=== PATIENT | male | born 1950 ===

== ENCOUNTER 2025-01-02 08:57 | Outpatient (CLI) | payer MEDICARE, SELFPAY ==
--- OUTSIDE RECORDS SUMMARY | 2025-01-02 09:09 | XMS_ITS | Referral Summary ---
Author Organization [facility] [place] [facility] Address [address] [place] [address] Care Team Providers Care Eeler Name Role Phone JoshuamilesOj Stinson DO Primary Care Prov ider Allergies No known active allergies Medications amiodarone (PACERONE) 100 mg tablet Take 1 tablet (100 mg total) by mouth daily 2 Active atorvastatin (LIPITOR) 20 mg tablet Take 1 tablet (20 mg total) by mouth nightly 3 Active calcium citrate (CALCITRATE) 950 mg (200 mg of elemental calcium) tablet Take 2 tablets by mouth 2 (two) times a day Active carvediloL (COREG) 6.25 mg tablet Take 1 tablet (6.25 mg total) by mouth 2 (two) times a day 3 Active Farxiga 10 mg tablet Take 1 tablet (10 mg total) by mouth every morning 3 Active fluticasone propionate (FLONASE) 50 mcg/actuation nasal spray Administer 2 sprays into affected nostril(s) daily 1 Active furosemide (LASIX) 40 mg tablet Take 40 mg by mouth 2 (two) times a day 2 Active Entresto 49-51 mg tablet Take 1 tablet by mouth 2 (two) times a day 3 Active Januvia 100 mg tablet Take 1 tablet (100 mg total) by mouth daily 3 Active tadalafiL (CIALIS) 5 mg tablet Take 1 tablet (5 mg total) by mouth daily 3 Active tamsulosin (FLOMAX) 0.4 mg extended release capsule Take by mouth daily 3 Active testosterone 50 mg/5 gram (1 %) PLEASE SEE ATTACHED FOR DETAILED DIRECTIONS 2 Active apixaban (Eliquis) 5 mg tablet Take 1 tablet (5 mg total) by mouth 2 (two) times a day 4 Active diclofenac sodium (Voltaren Arthritis Pain) 1 % gel APPLY 2 GRAMS TWICE A DAY TO AFFECTED AREA - APPLY TOPICALLY 4 Active predniSONE (DELTASONE) 20 mg tablet TAKE 2 TABLETS BY MOUTH EVERY DAY FOR 5 DAYS 4 Active cyanocobalamin (Vitamin B-12) 1,000 mcg/mL injection Inject 1 mL (1,000 mcg total) into the muscle as instructed every 2 (two) weeks 3 Active multivit minerals-folic acid-lutein (THERAPEUTIC-M) 0.4-250 mg-mcg tablet Take 1 tablet by mouth daily Active Active Problems Problem Noted Date Diagnosed Date Benign hypertensive heart di sease with congestive cardiac failure 02/19/2024 Generalized osteoarthritis 02/19/2024 Paroxysmal atrial fibrillation 02/19/2024 Presence of heart assist device 02/19/2024 Splenic infarction 06/25/2023 Cardiac defibrillator in situ 05/31/2022 Chronic congestive heart failure 05/31/2022 Decreased testosterone level 05/31/2022 Increased frequency of urination 05/31/2022 Stricture of esophagus 05/31/2022 Vitamin B12 deficiency (non anemic) 05/31/2022 Primary hypertension 02/07/2022 Stage 3b chronic kidney disease (CKD) 02/07/2022 Moderate mitral regurgitation 10/15/2021 Moderate pulmonary hypertension 10/15/2021 Overview (02/19/2024): Noted on cardiac catheterization 08/10/18 Nonischemic cardiomyopathy 09/06/2021 Overview (02/19/2024): RENETTA ALEX CUSTOMER EXPERIENCE CONSULTANT-D IMPLANTED 04/18/2016 FOR NICM Presence of biventricular au tomatic cardioverter/defibrillator (AICD) 09/06/2021 Overview (02/19/2024): T ABI CUSTOMER EXPERIENCE CONSULTANT-D IMPLANTED 04/18/2016 FOR NICM Heart failure 07/01/2021 BPH with urinary obstruction 05/25/2021 BPH with urinary obstruction 05/25/2021 Mixed hyperlipidemia 05/25/2021 Obstructive sleep apnea syndrome 05/25/2021 Type 2 diabetes mellitus wit h stage 3b chronic kidney disease, without long-term current use of insulin 05/25/2021 Immunizations Immunization Administration Dates Next Due Influenza, Quadrivalent, Hig h Dose, Preservative Free, Intrr 03/15/2023,05/04/2022,05/04/2021,2020 Influenza, Unspecified 05/04/2021 Pfizer SARS-CoV-2 Monovalent Vaccination (12+ Yrs) PURPLE 03/25/2021 Pneumococcal Conjugate Pcv20 03/26/2022 Sars-cov-2 Covid-19 Mrna, Bi valent, Original/chayo Ba.1 04/22/2023 Social History Tobacco Use Types Packs/Day Years Used Date Smoking Tobacco: Former Cigarettes Q uit: 12/08/1981 Cigars Smokeless Tobacco: Never Tobacco Cessation:Counseling Given: Not Answered AUDIT-C Answer Date Recorded Q1: How often do you have a drink containing alc ohol? 2-3 times a week 07/29/2022 Average Number of Drinks Not on file 023 Frequency of Binge Drinking Not on file 08/2022 Sex and Gender Information Value Date Recorded Sex Assigned at Not on file Legal Sex Male 2:18 AM WEB PRESS JOGGER Gender Identity Not on file Sexual Orientation Not on file Last Filed Vital Signs Vital Sign Reading Time Taken Comments Blood Pressure 102/68 07/29/2022 9:15 AM WEB PRESS JOGGER Pulse 66 07/29/2022 9:15 AM WEB PRESS JOGGER Temperature - - Respiratory Rate - - Oxygen Saturation - - Inhaled Oxygen Concentration - - Weight 106 kg (233 lb 11 oz) 02/21/2024 10:21 AM CDT Height 180.3 cm (5' 11) 02/21/2024 10:21 AM CDT Body Mass Index 32.59 02/21/2024 10:21 AM CDT Plan of Treatment Not on file Insurance MEDICARE [facility] MEDICARE [facility] MEDICARE [facility] Address: [address] [address] [place] [address] [place] [address] Care Teams Eeler Relationship Specialty Start Date End Date Oj Lopez DO PCP - General Family Medicine 12/14/21
--- OUTSIDE RECORDS SUMMARY | 2025-01-02 09:09 | XMS_ITS | Clinical Summary ---
Author Organization [facility] [place] [facility] Address [address] [place] [address] Care Team Providers Care Nonprofit Financial Controller Name Role Phone JoshuamilesOj Stinson DO Primary [...] Nonischemic cardiomyopathy 09/06/2021 Overview (02/19/2024): RENETTA ALEX COUNSELING SPECIALIST-D IMPLANTED 04/18/2016 FOR NICM Presence of biventricular au tomatic cardioverter/defibrillator (AICD) 09/06/2021 Overview (02/19/2024): RENETTA ALEX COUNSELING SPECIALIST-D IMPLANTED 04/18/2016 FOR NICM Heart failure 07/01/2021 [...] Pcv20 03/26/2022 Sars-cov-2 Covid-19 Mrna, Bi valent, Original/omicron Ba.1 04/22/2023 Surgical History Surgery Date Site/Laterality Comments GASTRIC BYPASS COLONOSCOPY ESOPHAGEAL DILATION CARDIAC DEFIBRILLATOR PLACEMENT CARDIAC PACEMAKER PLACEMENT BARIATRIC SURGERY Medical History Medical History Date Comments Heart failure (HCC) Diabetes mellitus (HCC) Hypertension Obesity Sickle cell anemia (HCC) Family History Medical History Relation Name Comments Arthritis Brother Justin correar Diabetes Brother Justin louis Diabetes Daughter kaitlynn siddiqi Kidney disease Father sherri Martinez Arthritis Mother robert guerra Cancer Mother robert guerra Diabetes Mother robert guerra Lung cancer Mother robert guerra Diabetes Sister delgado louis Hypertension Sister delgado louis Seizures Sister delgado louis Relation Name Status Comments Brother Justin missy Daughter kaitlynn deckerlace Father sherri Martinez Mother robert guerra Sister delgado louis Social History Tobacco Use Types Packs/Day Years [...] on file Legal Sex Male 2:18 AM GEAR TESTER Gender Identity Not on file Sexual Orientation Not on file Obstetrics History Last Filed Vital Signs Vital Sign Reading Time Taken Comments Blood Pressure 102/68 07/29/2022 9:15 AM GEAR TESTER Pulse 66 07/29/2022 9:15 AM GEAR TESTER Temperature - - Respiratory Rate - - Oxygen Saturation - - Inhaled Oxygen Concentration - - Weight 106 kg (233 lb 11 oz) 02/21/2024 10:21 AM CDT Height 180.3 cm (5' 11) 02/21/2024 10:21 AM CDT Body Mass Index 32.59 02/21/2024 10:21 AM CDT Plan of Treatment Health Maintenance Due Date Last Done Comments Albumin Creatinine Ratio, Urine 1949 Colon Cancer Screening-Colonoscopy 1949 Depression Screening 1949 Fall Risk Assessment 1949 Hemoglobin A1C 1949 Hepatitis C Screening 1949 Prostate Cancer Screening-PSA 1949 eGFR 1949 Dilated Eye Exam 1949 Foot Exam 1949 DTaP/Tdap/Td Vaccine (1 - Tdap) 1960 Hepatitis B Screening 08/25/1967 Zoster Vaccine (1 of 2) 08/25/1999 Well Visit 65+ 2014 Covid-19 Vaccine (5 - 2023-2 5 season) 2024 04/22/2023, 11/10/2021, 03/25/2021, Additional history exists Lipid Panel 12/24/2024 12/25/2023, 06/30/2022 Influenza Vaccine (Season Ended) 2025 03/15/2023, 05/04/2022, 05/04/2021, Additional history exists Pneumococcal vaccine 65+ Completed 03/26/2022 Abdominal Aortic Aneurysm (A AA) Screen Completed 06/25/2023 Insurance MEDICARE [facility] MEDICARE [facility] H[facility]/PPO Address: [address] [place] [address] [place] [address] Care Teams Nonprofit Financial Controller Relationship Specialty Start Date End Date Oj Lopez DO PCP - General Family Medicine 12/14/21
--- OUTSIDE RECORDS SUMMARY | 2025-01-02 09:09 | XMS_ITS | Clinical Summary ---
Author Organization [facility] Address [address] [place] [address] Care Team Providers Care Home Aide Name Role Phone Oj Lopez DO Primary Care Provide r Allergies No known active allergies Medications Dapagliflozin Propanediol 10 MG Tab Take 1 tablet (10 mg total) by mouth daily. Active tamsulosin 0.4 MG Cap Take 1 capsule (0.4 mg total) by mouth daily. Active tadalafil 5 MG tablet Take 1 tablet (5 mg total) by mouth daily. 1 Active carvedilol 6.25 MG tablet Take 1 tablet (6.25 mg total) by mouth 2 (two) times daily. 180 tablet 1 2 Active atorvastatin (LIPITOR) 20 MG tablet TAKE 1 TABLET BY MOUTH NIGHTLY AT BEDTIME 90 tablet 2 Active multi vitamin/minerals (THERA-M ENHANCED) tablet Take 1 tablet by mouth daily. Active cyanocobalamin (B-12) 1000 MCG/ML injection Inject 1 mL (1,000 mcg total) into the muscle every 14 (fourteen) days. Takes twice a month. States he is due for it today. 3 Active furosemide (LASIX) 40 MG tablet Take 1 tablet (40 mg total) by mouth daily. 90 tablet 1 4 Active sAXagliptin HCl 5 MG Tab Take 1 tablet by mouth daily. 5 Active ELIQUIS 5 MG tablet TAKE 1 TABLET (5 MG TOTAL) BY MOUTH 2 (TWO) TIMES DAILY. INDICATIONS: BLOOD CLOT IN A DEEP VEIN 180 tablet 1 5 Active ENTRESTO 49-51 MG tabletIndications:N onischemic cardiomyopathy ([facility]) TAKE 1 TABLET BY MOUTH TWICE A DAY 180 tablet 5 Active Active Problems Problem Noted Date Diagnosed Date Generalized osteoarthritis 02/19/2024 Paroxysmal atrial fibrillation ([facility]) 02/06/2024 Splenic infarction 06/25/2023 Cardiac defibrillator in situ 05/31/2022 Chronic congestive heart failure ([facility]/ C) 05/31/2022 Decreased testosterone level 05/31/2022 Increased frequency of urination 05/31/2022 Stricture of esophagus 05/31/2022 Vitamin B12 deficiency (non anemic) 05/31/2022 Primary hypertension 02/07/2022 Type 2 diabetes mellitus wit h stage 3b chronic kidney disease, without long-term current use of insulin ([facility]) 02/07/2022 Stage 3b chronic kidney disease (CKD) 02/07/2022 Moderate mitral regurgitation 10/15/2021 Moderate pulmonary hypertension ([facility] ) 10/15/2021 Overview (10/15/2021): Noted on cardiac catheterization 08/10/18 Nonischemic cardiomyopathy ([facility]) Overview (09/06/2021): SADIE ALEX STRIPE MATCHER-D IMPLANTED 04/18/2016 FOR NICM Presence of biventricular au tomatic cardioverter/defibrillator (AICD) 09/06/2021 Overview (09/06/2021): SADIE ALEX STRIPE MATCHER-D IMPLANTED 04/18/2016 FOR NICM Heart failure ([facility]) 07/01/2021 BPH with urinary obstruction 05/25/2021 Obstructive sleep apnea syndrome 05/25/2021 Mixed hyperlipidemia Resolved Problems Problem Noted Date Diagnosed Date Resolved Date Hypertensive heart disease 0 01/03/2022 Encounters Date Type Department Care Team Description 01/01/2025 Telephone [facility], [address] [address] Krystal Olmos, JONATHON- Follow Up 12/16/2024 2:40 PM CDT Office Visit [facility] Multispecialty Care - [facility] [address] [facility], [facility] [address] [place] [address] Sherin Watkins MD CKD Follow-up 12/16/2024 Travel 12/15/2024 2:20 PM CDT Allied Health/Nurse Visit [facility], [facility] [address] [place] [address] Marylou Kumar MD Remote Device Check 12/05/2024 11:30 AM CDT [facility], [facility] [address] [place] [address] Marylou Kumar MD In Clinic Device Check 12/05/2024 Travel from Last 3 Months Immunizations Immunization Administration Dates Next Due Fluzone High Dose - >Age 65 (Prefilled Syringe) 05/04/2022,05/04/2021,04/16/2021 Influenza Adult (Generic) 05/04/2021 Family History Medical History Relation Comments Diabetes Maternal Grandfather Diabetes Maternal Grandmother Diabetes Mother Hypertension Mother Lung Cancer Mother Diabetes Paternal Grandfather Diabetes Paternal Grandmother Hypertension Sister 1 Seizures Sister 1 Relation Status Comments Brother 1 Alive Brother 2 Brother 3 Alive Brother 4 Alive Brother 5 Alive Father (Age 23) Maternal Grandfather Maternal Grandmother Mother (Age 71) Paternal Grandfather Paternal Grandmother Sister 1 Sister 2 Alive Sister 3 Alive Social History Tobacco Use Types Packs/Day Years Used Date Smoking Tobacco: Former Cigars Q uit: 1999 Smokeless Tobacco: Never Tobacco Cessation:Counseling Given: No Alcohol Use Standard Drinks/Week Comments Yes 4 (1 standard drink = 0.6 oz pur e alcohol) [facility] Utilities Answer Date Recorded In the past 12 months has e electric, gas, oil, or water company threatened to shut off services in your home? No 06/25/2023 Humiliation, Afraid, Rape, and Kick questionnair e Answer Date Recorded Within the last year, have y ou been afraid of your partner or ex-partner? No 06/25/2023 Within the last year, have y ou been humiliated or emotionally abused in other ways by your partner or ex-partner? No Within the last year, have y ou been kicked, hit, slapped, or otherwise physically hurt by your partner or ex-partner? No 06/25/2023 Within the last year, have y ou been raped or forced to have any kind of sexual activity by your partner or ex-partner? No 06/25/2023 Overall Financial Resource Strain (CARDIA) Answe r Date Recorded How hard is it for you to pa y for the very basics like food, housing, medical care, and heating? Not hard at all 06/25/2023 PHQ-2 Answer Date Recorded Patient Health Questionnaire-2 Score 0 12/16/2024 Hunger Vital Sign Answer Date Recorded Within the past 12 months, y ou worried that your food would run out before you got the money to buy more. Never true 06/25/20 Within the past 12 months, t he food you bought just didn't last and you didn't have money to get more. Never true 06/25/2023 PRAPARE - Transportation Answer Date Re corded In the past 12 months, has l ack of transportation kept you from medical appointments or from getting medications? No 05/28 In the past 12 months, has l ack of transportation kept you from meetings, work, or from getting things needed for daily living? No 06/25/2023 Housing Stability Vital Sign Answer Dominick e Recorded In the last 12 months, was t here a time when you were not able to pay the mortgage or rent on time? No 06/25/2023 In the last 12 months, how many places have you lived? 1 06/25/2023 In the last 12 months, was t here a time when you did not have a steady place to sleep or slept in a fpc (including now)? No 06/25/2023 Sex and Gender Information Value Date Recorded Sex Assigned at Male 08/05/2024 11:24 AM [employer] Legal Sex Male 6:03 PM [employer] Gender Identity Male 07/08/2021 1:41 PM [employer] Sexual Orientation Not on file Last Filed Vital Signs Vital Sign Reading Time Taken Comments Blood Pressure 108/74 12/16/2024 2:31 PM CDT Pulse 42 12/16/2024 2:31 PM CDT Temperature 36.4 C (97.5 F) 12/16/2024 2:31 PM CDT Respiratory Rate 18 03/29/2024 11:05 AM CDT Oxygen Saturation 99% 12/16/2024 2:31 PM CDT Inhaled Oxygen Concentration - - Weight 105.7 kg (233 lb) 12/16/2024 2:31 PM CDT Height 180.3 cm (5' 11) 12/16/2024 2:31 PM CDT Body Mass Index 32.5 12/16/2024 2:31 PM CDT Plan of Treatment Upcoming Encounters Date Type Department Care Team (Late st Contact Info) Description 01/28/2025 9:00 AM CDT Appointment [facility] [place] [address] Lelia Little PA-C 02/04/2025 10:15 AM CDT Office Visit [facility] [address] Matt Villalobos MD [facility], [address] [address] 03/16/2025 2:15 PM CDT Allied Health/Nurse Visit [facility], [address] [address] Geoffrey Yu MD [address] [address] 03/17/2025 2:30 PM CDT [facility], [address] [address] Geoffrey Yu MD Three [facility]. [address] [place] [address] 08/11/2025 10:30 AM [employer] Office Visit [facility] THREE [facility], [address] [place] [address] Marylou Kumar MD Three [facility]. [address] [place] [address] Health Maintenance Due Date Last Done Comments Colorectal Cancer Screening Colonoscopy (10 Years) 1950 Kidney Health Evaluation 1950 Diabetes: Retinopathy Eye Exam 08/25/1967 Hepatitis C 08/25/1967 DTaP, Tdap and Td Vaccines (1 - Tdap) 1968 Zoster Vaccines (1 of 2) 08/25/1999 Annual Medicare Wellness Visit 2014 Lipid Panel 06/30/2023 06/30/2022, 05/25/2021 Hemoglobin A1C 12/25/2023 06/26/2023, 10/2022, 12/13/2021, Additional history exists COVID-19 Vaccine (2 - season) 2024 03/25/2021 RSV Immunization or 60+ Years (1 - 1-dose 75+ series) 2024 Pneumococcal Vaccine: 50+ Years Completed 03/26/2022 AAA SCREENING Completed 06/25/2023 PHQ-2 (Physician [place]) Completed 12/16/2024 Meningococcal B Vaccine Aged Out No l onger eligible based on patient's age to complete this topic Meningococcal Vaccine Aged Out No caitlin mayelin eligible based on patient's age to complete this topic RSV Immunizations Under 20 Months Aged Out No longer eligible based on patient's age to complete this topic Goals Goal Patient Goal Type Associated Problems Recent Progress Patient-Stated? Author Patient will return to prior living situation and remain independent in ADLs upon discharge from hospital Lifestyle No Stefani Oseguera RN Medical Devices Implanted Type Area Data Deliverables Manager Device Identifier Shelf Expiration Date Model / Serial / Lot Icd-10/24/201 6 Implanted: (Quantity not on file) Explanted: by Marylou Kumar MD (Quantity not on file) ICD [employer] CARDIAC RHYTHM AND HEART FAILURE - DIV M [id number] / [id number] / Description:Implanted in [place] DASH [id number] Sadie Jqn-Psq-Alc- Implanted:Qty : 1 on 03/14/2024 by Marylou Kumar MD ICD [employer] CARDIAC RHYTHM AND HEART FAILURE - DIV M 07/09/2025 [id number] / [id number] / [id number]- 011 Implanted: (Quantity not on file) Lead Implant [employer] - DIV [employer] [id number] / [id number] / Atrial Lead- 1 Implanted: (Quantity not on file) Lead Implant [employer] - DIV [employer] [id number] / [id number] / Lv Lead-04/18/20 16 Implanted: (Quantity not on file) Lead Implant [employer] CARDIAC RHYTHM AND HEART FAILURE - DIV M [id number] / [id number] / Procedures Procedure Name Priority Date/Time Associated Diagnosis Comments HEMOGLOBIN, GLYCOSYLATED Routine 06/26/2023 3:50 [address] [employer] [place] [address] ABD+PEL W CON STAT 06/25/2023 1:42 AM [employer] [place] LIPID PANEL Routine 06/30/2022 from Last 3 Months or Most Recently Relevant to Health Maintenance Results * (ABNORMAL) HEMOGLOBIN, GLYCATED (06/26/2023 3:50 AM [employer] [place]) HGB A1C 6.4(H) <5.7 % 06/26/2023 12:13 PM [employer] [facility] Comment: ADA GUIDELINES 2010 5.7 TO 6.4% INCREASED RISK OF DIABETES > OR = 6.5% CONSISTENT WITH DIABETES ESTIMATED AVG GLUCOSE 137 mg/dL 06/26/2023 12:13 PM [employer] [place] [facility] 06/26/2023 3:50 AM [employer] Schuyler Matthew MD LABORATORY Final Resul t [facility] [address] [place] [address], [place] [phone] * CT ABD+PEL W CON (06/25/2023 1:42 AM [employer] [place]) Anatomical Region Laterality Modality Abdomen Computed Tomogra phy 06/25/2023 1:27 AM [employer] [place] Impressions 06/25/2023 1:31 AM [employer] IMPRESSION: 1. Wedge-shaped area of hypoattenuation in spleen consistent with either acute or chronic infarct. 2. Tiny amount of satellite gallstones present without associated cholecystitis. 3. Of particular versus coli. PQRS ABDOMINAL: [id number] Referred By: Interpreted By: Woo Elena, 06/25/2023 1:27 AM Narrative 06/25/2023 1:31 AM [employer] HISTORY: Left lower quadrant abdominal pain COMPARISON: None TECHNIQUE: CT abdomen and pelvis performed utilizing thin-slice axial technique following IV administration of contrast. A dose-lowering technique was used for this procedure, which may include, but is not limited to, dose-reduction technique, automated exposure control, the use of iterative reconstruction, and ALARA (As Low As Reasonably Achievable) / Image Gently techniques. FINDINGS: Tiny amount of saline likely stones in otherwise normal-appearing gallbladder. Biliary tracts within normal limits. Liver, adrenal glands, and pancreas unremarkable. Spleen demonstrates wedge-shaped area of high hypoattenuation consistent with infarct. This could be either acute or chronic. Kidneys appear unremarkable. There is enlarged prostate. Other than encroachment upon the bladder base, bladder is unremarkable. GI tract shows no obstruction. Surgical changes of Monica-en-Y gastric bypass noted. There are no segments of wall thickening throughout the GI tract. Diverticulosis coli without associated diverticulitis. No abdominal or pelvic lymphadenopathy. Major vascular structures of normal course and caliber with mild calcific plaque of the infrarenal abdominal aorta and iliac arteries. No free fluid or free air. Abdominal wall and inguinal regions unremarkable. Included lower chest shows mild right basilar dependent atelectasis. There is cardiomegaly. Visible bones show no suspicious lytic or blastic lesions. Procedure Note Woo Elena MD - 06/25/2023 HISTORY: Left lower quadrant abdominal pain COMPARISON: None TECHNIQUE: CT abdomen and pelvis performed utilizing thin-slice axialtechnique following IV administration of contrast. A dose-loweringtechnique was used for this procedure, which may include, but is notlimited to, dose-reduction technique, automated exposure control, the useof iterative reconstruction, and ALARA (As Low As Reasonably Achievable) /Image Gently techniques. FINDINGS: Tiny amount of saline likely stones in otherwise normal-appearinggallbladder. Biliary tracts within normal limits. Liver, adrenal glands,and pancreas unremarkable. Spleen demonstrates wedge-shaped area of highhypoattenuation consistent with infarct. This could be either acute orchronic. Kidneys appear unremarkable. There is enlarged prostate. Otherthan encroachment upon the bladder base, bladder is unremarkable. GI tract shows no obstruction. Surgical changes of Monica-en-Y gastricbypass noted. There are no segments of wall thickening throughout the GItract. Diverticulosis coli without associated diverticulitis. No abdominal or pelvic lymphadenopathy. Major vascular structures ofnormal course and caliber with mild calcific plaque of the infrarenalabdominal aorta and iliac arteries. No free fluid or free air. Abdominalwall and inguinal regions unremarkable. Included lower chest shows mild right basilar dependent atelectasis.There is cardiomegaly. Visible bones show no suspicious lytic or blasticlesions. IMPRESSION: 1. Wedge-shaped area of hypoattenuation in spleen consistent with eitheracute or chronic infarct. 2. Tiny amount of satellite gallstones present without associatedcholecystitis. 3. Of particular versus coli. PQRS ABDOMINAL: [id number] Referred By: Interpreted By: Woo Elena, 06/25/2023 1:27 AM us Rich SORTO CT Final Resu lt * LIPID PANEL (06/30/2022) CHOLESTEROL 148 HDL 62 TRIGLYCERIDES 99 LDL (CALCULATED) 66 06/30/2022 us Default History Genericprovider LABORATORY Final Result from Last 3 Months or Most Recently Relevant to Health Maintenance Insurance MEDICARE [employer] Advance Directives * Full Code (Latest Code Status on File) Date Activated Date Inactivated Comments 06/25/2023 4:50 AM 06/27/2023 1:43 PM Care Teams Home Aide Relationship Specialty Start Date End Date Oj Lopez DO [address] [place] [address] PCP - General FAMILY PRACTICE 06/10/21
--- OUTSIDE RECORDS SUMMARY | 2025-01-02 09:09 | XMS_ITS | Encounter Summary ---
Author Organization [facility] Address [address] [place] [address] Care Team Providers Care Overhead Crane Inspector Name Role Phone Oj Lopez DO Primary Care Provide r Encounter Details Date Type Department Care Team (Late Contact Info) Description 07/01/2022 Abstract [facility] THREE [facility], [address] [address] Briana Krause MA Social History Tobacco Use Types Packs/Day Years Used Date Smoking Tobacco: Former Cigars Q uit: 1998 Smokeless Tobacco: Never Alcohol Use Standard Drinks/Week Comments Yes 4 (1 standard drink = 0.6 oz pur e alcohol) PHQ-2 Answer Date Recorded PHQ-2 Score - If the patient scores above 3, please move on to questions 3-9 0 05/12/2022 Sex and Gender Information Value Date Recorded Sex Assigned at Male 08/05/2024 11:24 AM ADMINISTRATIVE ASSISTANT COORDINATOR Legal Sex Male 6:03 PM ADMINISTRATIVE ASSISTANT COORDINATOR Gender Identity Male 07/08/2021 1:41 PM ADMINISTRATIVE ASSISTANT COORDINATOR Sexual Orientation Not on file COVID-19 Exposure Response Date Recorded In the last 10 days, have yo u been in contact with someone who was confirmed or suspected to have Coronavirus/COVID-19? No / Unsure 06/06/2022 12:48 PM ADMINISTRATIVE ASSISTANT COORDINATOR documented as of this encounter Plan of Treatment Upcoming Encounters Date Type Department Care Team (Late Contact Info) Description 01/28/2025 9:00 AM CDT Appointment [facility] Non Invasive Cardiology [facility] [address] Lelia Little PA-C 02/04/2025 10:15 AM CDT Office Visit [facility], [address] [place] [address] Matt Villalobos MD Three [facility] [address] [place] [address] 03/16/2025 2:15 PM CDT Allied Health/Nurse Visit [facility], [address] [place] [address] Geoffrey Yu MD Three [facility]. [address] [place] [address] 03/17/2025 2:30 PM CDT Allied Health/Nurse Visit [facility], [address] [place] [address] Geoffrey Yu MD Three [facility]. [address] [place] [address] 08/11/2025 10:30 AM ADMINISTRATIVE ASSISTANT COORDINATOR Office Visit [facility], [address] [place] [address] Marylou Kumar MD Three [facility]. [facility] [address] [place], [place] [id number] documented as of this encounter Procedures Procedure Name Priority Date/Time Associated Diagnosis Comments CBC (OUTSIDE LAB) Routine 06/30/2022 COMPREHENSIVE METABOLIC PANEL Routine 06/30/2022 LIPID PANEL Routine 06/30/2022 HEMOGLOBIN, GLYCOSYLATED Routine 06/30/2022 THYROID STIM HORMONE TSH Routine 06/30/2022 documented in this encounter Results * (ABNORMAL) COMPREHENSIVE METABOLIC PANEL (06/30/2022) SODIUM S/P/B 142 POTASSIUM S/P/B 4.8 CO2 29 CHLORIDE S/P/B 108 GLUCOSE 116 mg/dL CALCIUM S/P/B 9.3 BUN 18 CREATININE S/P/B 1.60(A) 0.7 - 1.3 EGFR NON-AFR. AMER. 45 <=90 ALKALINE PHOSPHATASE S/P/B 102 ALT 21 AST 24 BILIRUBIN TOTAL S/P/B 1.2 ALBUMIN S/P/B 4.3 3.5 - 5.0 TOTAL PROTEIN S/P/B 7.8 GLOBULIN 3.5 06/30/2022 [facility] History Genericprovider LABORATORY Edited Result - Final * LIPID PANEL (06/30/2022) Pathologist [facility] [place] CHOLESTEROL 148 HDL 62 TRIGLYCERIDES 99 LDL (CALCULATED) 66 06/30/2022 Default History Genericprovider LABORATORY Final Result * HEMOGLOBIN, GLYCOSYLATED (06/30/2022) HGB A1C 7.2 % 06/30/2022 Default History Genericprovider LABORATORY Final Result * THYROID STIM HORMONE, TSH (06/30/2022) TSH 1.30 06/30/2022 Default History Genericprovider LABORATORY Final Result * CBC (OUTSIDE LAB) (06/30/2022) WBC 7.38 HGB 14.7 HCT 46.0 PLT 270 06/30/2022 us Default History Genericprovider LAB-OUTSIDE/ABST RACTED Final Result documented in this encounter Visit Diagnoses Not on filedocumented in this encounter Additional Health Concerns Assessment Noted Time PHQ-9 Depression Total Score: 0 05/12/20 22 10:38 AM ADMINISTRATIVE ASSISTANT COORDINATOR documented as of this encounter Care Teams Overhead Crane Inspector Relationship Specialty Start Date End Date Oj Lopez DO [address] [place] [address] PCP - General FAMILY PRACTICE 06/10/21 documented as of this encounter
--- OUTSIDE RECORDS SUMMARY | 2025-01-02 09:09 | XMS_ITS | Clinical Summary ---
Author Organization [facility] Address [address] [place] [address] Phone Care Team Providers Care Equipment Hire Manager Name Role Phone MichAgustinPhelpsDeanaOj Primary Care Provide r Allergies No known active allergies Medications cyanocobalamin (VITAMIN B-12) 1000 MCG/ML Solution 1,000 mcg by Intramuscular route. 3 Active Multi Vitamin/Minera ls Tablet Take 1 Tablet by mouth daily. Active atorvastatin (LIPITOR) 20 MG Tablet Take 20 mg by mouth daily. 3 Active Entresto 49-51 MG Tablet Take 1 Tablet by mouth 2 times daily. 3 Active Farxiga 10 MG Tablet Take 1 Tablet by mouth every morning. 3 Active tamsulosin (FLOMAX) 0.4 MG Capsule Take 1 Capsule by mouth daily. 3 Active furosemide (LASIX) 40 MG Tablet Take 40 mg by mouth. 2 Active carvedilol (COREG) 6.25 MG Tablet Take 6.25 mg by mouth. 3 Active apixaban (ELIQUIS) 5 MG Tablet Take 5 mg by mouth. 4 Active sAXagliptin HCl 5 MG Tablet Take 1 Tablet by mouth daily. 5 Active Active Problems No known active problems Family History Medical History Relation Name Comments Diabetes Maternal Grandmother Cancer Mother lung Diabetes Mother Hypertension Mother Diabetes Paternal Grandfather Diabetes Paternal Grandmother Hypertension Sister Seizures Sister Relation Name Status Comments Maternal Grandmother Mother Paternal Grandfather Paternal Grandmother Sister Social History Tobacco Use Types Packs/Day Years Used Date Smoking Tobacco: Former Cigarettes Q uit: 1998 Smokeless Tobacco: Never Tobacco Cessation:Counseling Given: Not Answered Alcohol Use Standard Drinks/Week Comments Yes 0 (1 standard drink = 0.6 oz pur e alcohol) 2 glasses twice a week Sex and Gender Information Value Date Recorded Sex Assigned at Not on file Legal Sex Male 10:46 AM MANAGER AGRICULTURE Gender Identity Not on file Sexual Orientation Not on file Last Filed Vital Signs Vital Sign Reading Time Taken Comments Blood Pressure 130/82 08/27/2024 1:09 PM MANAGER AGRICULTURE Pulse 62 08/27/2024 1:09 PM MANAGER AGRICULTURE Temperature 36.5 C (97.7 F) 08/27/2024 1:09 PM MANAGER AGRICULTURE Respiratory Rate 16 08/27/2024 1:09 PM MANAGER AGRICULTURE Oxygen Saturation 98% 08/27/2024 1:09 PM MANAGER AGRICULTURE Inhaled Oxygen Concentration - - Weight 106.3 kg (234 lb 6.4 oz) 08/27/2024 1:09 PM MANAGER AGRICULTURE Height 181.6 cm (5' 11.5) 08/27/2024 1:09 PM CS T Body Mass Index 32.24 08/27/2024 1:09 PM MANAGER AGRICULTURE Plan of Treatment Upcoming Encounters Date Type Department Care Team (Late st Contact Info) Description 02/27/2025 10:30 AM CDT Lab [facility] [address] [id number] Gino Mason MD [address] [place] [id number] Lab, [facility] 02/27/2025 10:45 AM CDT Office Visit [facility] [address] [id number] Gino Mason MD [address] [place] [id number] Health Maintenance Due Date Last Done Comments Hepatitis C Virus (HCV) Screening 1950 TdaP Immunization 1950 Colonoscopy 1994 Colorectal Cancer Screening 1994 Cologuard 08/25/1999 Immunochemical Fecal Occult Blood 08/25/1999 Zoster Immunization (1 of 2) 08/25/1999 Respiratory Syncytial Virus (RSV) Immunization (Adult) (1 - 1-dose 75+ series) 2024 SARS-COV-2 Immunization ( season) 2024 04/03/2024, 04/22/2023, 03/10/2022, Additional history exists Pneumococcal Immunization (50+ years) Completed 03/26/2022 Influenza Immunization Completed , 03/15/2023, 05/04/2022, Additional history exists Hepatitis B Immunization Aged Out No longer eligible based on patient's age to complete this topic Human Papillomavirus (HPV) Immunization Aged Out No longer eligible based on patient's age to complete this topic Meningococcal Immunization (ACWY) Aged Out No longer eligible based on patient's age to complete this topic Rotavirus Immunization Aged Out No lo nger eligible based on patient's age to complete this topic Insurance MEDICARE [facility] Care Teams Equipment Hire Manager Relationship Specialty Start Date End Date Oj Lopez DO [address] [place] [address] PCP - General Family Medicine 06/27/23
--- OUTSIDE RECORDS SUMMARY | 2025-01-02 09:10 | XMS_ITS | Encounter Summary ---
Author Organization [facility] Address [address] [place] [id number] Care Team Providers Care Resident Care Aide Name Role Phone Oj Lopez DO Primary Care Provide r Encounter Details Date Type Department Care Team (Late Contact Info) Description 01/03/2022 Abstract [facility], [address] [address] Briana Krause MA Social History Tobacco Use Types Packs/Day Years Used Date Smoking Tobacco: Former Cigars Q uit: 1998 Smokeless Tobacco: Never Alcohol Use Standard Drinks/Week Comments Yes 4 (1 standard drink = 0.6 oz pur e alcohol) Sex and Gender Information Value Date Recorded Sex Assigned at Male 08/05/2024 11:24 AM SPREADING MACHINE OPERATOR Legal Sex Male 6:03 PM SPREADING MACHINE OPERATOR Gender Identity Male 07/08/2021 1:41 PM SPREADING MACHINE OPERATOR Sexual Orientation Not on file COVID-19 Exposure Response Date Recorded In the last 10 days, have yo u been in contact with someone who was confirmed or suspected to have Coronavirus/COVID-19? No / Unsure 01/03/2022 2:01 PM CDT documented as of this encounter Plan of Treatment Upcoming Encounters Date Type Department Care Team (Late Contact Info) Description 01/28/2025 9:00 AM CDT Appointment [facility] Non [place] [address] Lelia Little PA-C 02/04/2025 10:15 AM CDT Office Visit [facility], [address] [place] [address] Matt Villalobos MD Three [facility] [address] [place], [place] [phone] 03/16/2025 2:15 PM CDT Allied Health/Nurse Visit [facility], [address] [place], [place] [phone] Geoffrey Yu MD Three [facility]. [address] [place], [place] [address] 03/17/2025 2:30 PM CDT Allied Health/Nurse Visit [facility], [address] [place] [address] Geoffrey Yu MD Three [facility]. [address] [place], [place] [id number] 08/11/2025 10:30 AM SPREADING MACHINE OPERATOR Office Visit [facility], [address] [place], [place] [address] Marylou Kumar MD Three [facility]. [address] [place], [place] [address] documented as of this encounter Procedures Procedure Name Priority Date/Time Associated Diagnosis Comments BASIC METABOLIC PANEL Routine 12/29/2021 NT-PRO BNP [place]ISTA Routine 12/13/2021 COMPREHENSIVE METABOLIC PANEL Routine 12/13/2021 HEMOGLOBIN, GLYCOSYLATED Routine 12/13/2021 NT-PRO BNP [place]IST[place] Routine 09/27/2021 BASIC METABOLIC PANEL Routine 09/27/2021 C-REACTIVE PROTEIN Routine 09/27/2021 URIC ACID BLOOD Routine 09/27/2021 documented in this encounter Results * (ABNORMAL) BASIC METABOLIC PANEL (12/29/2021) SODIUM S/P/B 139 POTASSIUM S/P/B 4.2 CO2 26 CHLORIDE S/P/B 105 GLUCOSE 106 mg/dL CALCIUM S/P/B 8.7 BUN 16 CREATININE S/P/B 1.64(A) 0.7 - 1.3 EGFR NON-AFR. AMER. 44 <=90 12/29/2021 [facility]AT[facility] Edited Resul t - Final * Nt-Pro Bnp [place] (12/13/2021) PRO-BRAIN NATRIURETIC PEPTIDE 999 12/13/2021 [facility] GENERAL SUPPLY & EQUIPMENT O RDERABLES Edited Result - Final * HEMOGLOBIN, GLYCOSYLATED (12/13/2021) HGB A1C 6.0 % 12/13/2021 [facility]AT[facility] Final Result * (ABNORMAL) COMPREHENSIVE METABOLIC PANEL (12/13/2021) SODIUM S/P/B 140 POTASSIUM S/P/B 5.8 CO2 29 CHLORIDE S/P/B 104 GLUCOSE 126 mg/dL CALCIUM S/P/B 9.2 BUN 25 CREATININE S/P/B 1.69(A) 0.7 - 1.3 EGFR NON-AFR. AMER. 43 <=90 ALKALINE PHOSPHATASE S/P/B 89 ALT 18 AST 26 BILIRUBIN TOTAL S/P/B 1.1 ALBUMIN S/P/B 4.2 3.5 - 5.0 TOTAL PROTEIN S/P/B 7.6 12/13/2021 [facility] LABORATORY Edited Resul t - Final * Nt-Pro Bnp [place] (09/27/2021) PRO-BRAIN NATRIURETIC PEPTIDE 2,710 09/27/2021 us [facility] GENERAL SUPPLY & EQUIPMENT O RDERABLES Final Result * C-REACTIVE PROTEIN (09/27/2021) CRP 0.60 09/27/2021 [facility] LABORAT[facility] Final Result * URIC ACID BLOOD (09/27/2021) URIC ACID 6.2 09/27/2021 [facility] LAB[facility]AT[facility] Final Result * (ABNORMAL) BASIC METABOLIC PANEL (09/27/2021) SODIUM S/P/B 139 POTASSIUM S/P/B 4.8 CO2 24 CHLORIDE S/P/B 106 GLUCOSE 83 mg/dL CALCIUM S/P/B 9.0 BUN 24 CREATININE S/P/B 1.84(A) 0.7 - 1.3 EGFR AFR. AMER. 44 <=90 EGFR NON-AFR. AMER. 36 <=90 09/27/2021 [facility] Final Result documented in this encounter Visit Diagnoses Not on filedocumented in this encounter Care Teams Resident Care Aide Relationship Specialty Start Date End Date Oj Lopez DO [address] [place] [phone] PCP - General FAMILY PRACTICE 06/10/21 documented as of this encounter
--- OUTSIDE RECORDS SUMMARY | 2025-01-02 09:10 | XMS_ITS | Encounter Summary ---
Author Organization [facility] Address [address] [place] [address] Care Team Providers Care Commercial Green Building Architect Name Role Phone Oj Lopez DO Primary Care Provide r Reason for Visit * Reason Onset Date Comments Follow Up 01/01/2025 Encounter Details Date Type Department Care Team (Late st Contact Info) Description 01/01/2025 Telephone [facility] [address] [place], [place] [phone] Krystal Olmos, [facility]. [facility] [address] [place], [place] [id number] Follow Up Social History Tobacco Use Types Packs/Day Years Used Date Smoking Tobacco: Former Cigars Q uit: 1998 Smokeless Tobacco: Never Alcohol Use Standard Drinks/Week Comments Yes 4 (1 standard drink = 0.6 oz pur e alcohol) [facility] Utilities Answer Date Recorded In the [...] place to sleep or slept in a detention (including now)? No 06/25/2023 Sex and Gender Information Value Date Recorded Sex Assigned at Male 08/05/2024 11:24 AM MANDOLIN REPAIRER Legal Sex Male 6:03 PM MANDOLIN REPAIRER Gender Identity Male 07/08/2021 1:41 PM MANDOLIN REPAIRER Sexual Orientation Not on file documented as of this encounter Functional Status * Are you deaf or do you have serious difficulty hearing Answer Date of Assessment Author Status No 06/25/2023 5:14 AM MANDOLIN REPAIRER Kaitlin Julio RN Active * Are you blind or do you have serious difficulty seeing, even when wearing glasses? Answer Date of Assessment Author Status No 06/25/2023 5:14 AM Kaitlin Pang RN Active * Do you have serious difficulty walking or climbing stairs? Answer Date of Assessment Author Status No 06/25/2023 5:14 AM Kaitlin Pang RN Active * Do you have difficulty dressing or bathing? Answer Date of Assessment Author Status No 06/25/2023 5:14 AM Kaitlin Pang RN Active * Because of a physical, mental, or emotional condition, do you have difficulty doing errands alone such as visiting a doctor's office or shopping? Answer Date of Assessment Author Status No 06/25/2023 5:14 AM Kaitlin Pang RN Active documented as of this encounter Mental Status * Because of a physical, mental, or emotional condition, do you have serious difficulty concentrating, remembering, or making decisions? Answer Entry Date Author Status No 06/25/2023 5:14 AM Kaitlin Pang RN Active documented in this encounter Progress Notes * Jazmyne Castle RN - 01/01/2025 2:05 PM CDT Patient was recently seen at a hospital in [place] and they made changes to his cardiac meds. Call transferred to [facility] so we can get records to review Jazmyne PAL documented in this encounter Plan of Treatment Upcoming Encounters Date Type Department Care Team (Late st Contact Info) Description 01/28/2025 9:00 AM CDT Appointment [facility] [place] [address] Lelia Little PA-C 02/04/2025 10:15 AM CDT Office Visit [facility], [address] [place] [address] Matt Villalobos MD Three [facility] [address] [place] [address] 03/16/2025 2:15 PM CDT Allied Health/Nurse Visit [facility], [address] [place] [address] Geoffrey Yu MD Three [facility]. [address] [place], [place] [address] 03/17/2025 2:30 PM CDT Allied Health/Nurse Visit [facility], [address] [place] [address] Geoffrey Yu MD Three [facility]. [address] [place], [place] [address] 08/11/2025 10:30 AM MANDOLIN REPAIRER Office Visit [facility], [address] [place], [place] [address] Marylou Kumar MD Three [facility]. [facility] [address] [place], [place] [address] documented as of this encounter Goals Goal Patient Goal Type Associated Problems Recent Progress Patient-Stated? Author Patient will return to prior living situation and remain independent in ADLs upon discharge from hospital Lifestyle No Stefani Oseguera, RN documented as of this encounter Visit Diagnoses Not on filedocumented in this encounter Additional Health Concerns Assessment Noted Time PHQ-9 Depression Total Score: 0 05/12/20 22 10:38 AM MANDOLIN REPAIRER documented as of this encounter Care Teams Commercial Green Building Architect Relationship Specialty Start Date End Date Oj Lopez DO [address] [facility] [place] [phone] PCP - General FAMILY PRACTICE 06/10/21 documented as of this encounter
--- NOTE | 2025-02-01 14:58 | P.SLEEP_ITS ---
Sleep Study Date of Study: 01/02/25 Ordering Provider: Ashish Lopes, RADIO FREQUENCY DESIGN ENGINEER Interpreting Physician: Caro Vincent, DO Sleep Study Type: BiPAP Titration Height: 1.8 m Weight: 105.233 kg Body Mass Index: 32.3 Neck Circumference (inches): 16.5 [place]: 10 Reason for Sleep Study Daytime hypersomnia despite BPAP use. Compliance data shows residual AHI of 9.9 on BPAP 20/16 cm H2O with BR 10 breaths/min. Sleep History The patient is a 74-year-old male that had a BPAP titration ordered by his ENT to determine optimal pressure settings. The patient denies awakening at night with heartburn, belching or cough. He frequently snores and is occasionally loud enough that others complain. He denies having trouble sleeping when he has a cold. He occasionally wakes up gasping for air throughout the night. He rarely has breathing problems at night observed by himself or others. He denies sweating excessively at night. He denies having heart palpitations or irregular heartbeats during the night. He occasionally falls asleep during the day but rarely while driving. He denies sleep paralysis, cataplexy and hypnagogic/ hypnopompic hallucinations. He denies having trouble at school or work due to sleepiness. He occasionally feels afraid of going to sleep. He rarely has nightmares. He occasionally remembers his dreams. He denies having thoughts racing through his mind. He denies feeling sad, depressed or anxious. He denies having muscular tension. He denies noticing parts of his body jerk. He denies kicking during the night. He denies having crawling and aching feelings in his legs and denies having leg pain during the night. He occasionally grinds his teeth during sleep but never awakens with morning jaw pain. He denies being bothered by pain during the day and denies being awakened by pain during the night. He denies waking up feeling stiff in the morning. He denies waking up with sore or achy muscles. He denies waking up with pain in the neck, spine or other joints. He goes to bed at 10:00 p.m. every night. It takes him 10 minutes to fall asleep. He wakes up 3-4 times throughout the night to urinate and is able to fall back asleep within a few minutes. He wakes up at 5:00 a.m. every morning. He typically gets 6-1/2 hours of sleep per night. He will stay in bed for 10 minutes after waking up morning. He currently lives with his . He denies consuming any caffeinated beverages within 2 hours of bedtime. He denies engaging in physical exercise before bedtime. He will watch television before falling asleep. He has 1 cup of caffeinated beverage per day. He quit smoking cigarettes 10 years ago. He consumes 8 oz of alcohol per day. He denies recreational drug use. Sleep Procedure A full night BPAP Titration using the [employer] multi-channel system recorded the standard physiologic parameters including EEG, EOG, submentalis EMG, anterior tibialis EMG, EKG, body position, nasal and oral airflow using nasal pressure sensor and thermistor.? Respiratory parameters of chest and abdominal movements were recorded with Respiratory Inductance Plethysmography belts. Oxygen saturation was recorded by pulse oximetry. Video monitoring was also performed. Sleep stages, periodic limb movements, and EEG arousals were scored in 30 second epochs according to the criteria of the AASM Scoring Manual. The Apnea-Hypopnea Index was calculated using CMS guidelines for definition of hypopnea with 4% O2 desaturations while scoring respiratory events. Sleep Architecture The total recording time was 531.7 minutes.? The total sleep time was 318.0 minutes. Sleep latency was 12.9 minutes. REM latency was 216.5 minutes. Sleep efficiency was 59.8%. The patient had 117 awakenings for an awakening index of 22.1. Wake after Sleep Onset time was 201.0 minutes. The patient spent 94.0 minutes, 29.6% of total sleep time in Stage N1. The patient spent 163.0 minutes, 51.3% in Stage N2. The patient spent 0.0 minutes, 0.0% in Stage N3. The patient spent 61.0 minutes, 19.2% in Stage REM. Respiratory Analysis The patient had 45 hypopneas for an overall Apnea Hypopnea Index of 23.4 events per hour. The REM Apnea Hypopnea Index was 9.8. The NREM Apnea Hypopnea Index was 26.6. The patient had a Central Apnea Hypopnea Index of 15.8. Harrison-Lopez Respirations were present in the beginning of the study. The patient had a cycle length of 74.2 seconds and a circulation time of 43.2 seconds. The patient was started on BPAP 10/6 cm H2O and titrated to BPAP 18/12 cm H2O with back-up rate of 12 breaths/min. The patient was able to fall asleep starting on BPAP 10/6 cm H2O. The patient was able to achieve REM sleep starting on BPAP 14/6 cm H2O with a back up rate of 11 breaths/min. The lowest residual AHI we were able to achieve was 1.3 on BPAP 18/12 cm H2O with BR of 12 breaths/min. On BPAP 18/12 cm H2O with BR of 12 breaths/min, the patient spent 74.5 minutes in NREM and 19 minutes in REM with 2 hypopneas, resulting in an AHI of 1.3. The patient had a sleep efficiency of 93.5% on this pressure setting. Arousals There were 96 total arousals for an arousal index of 18.1. There were 75 spontaneous arousals for an index of 14.2. ?There were 20 arousals due to respiratory events for an index of 3.8. There were 0 arousals due to periodic limb movements for an index of 0.? There was 1 arousal due to isolated limb movements for an index of 0.2. Periodic Limb Movements The patient had 23 isolated limb movements with an index of 4.3. The patient had 13 periodic limb movements with index of 2.5. Patient had a total of 36 limb movements with a total limb movement index of 6.8. Oximetry Data The patient had an average oxygen saturation of 96.0% in sleep with a minimum oxygen saturation of 89.0% and a maximum oxygen saturation of 99.0%. The patient had 117 oxygen desaturations that were 4% or greater resulting in an Oxygen Desa turation Index of 22.1.? The patient spent 0.1 minutes of total sleep time with an oxygen saturation below 88%. Snoring Profile Snoring was not present during this study. Cardiac Profile The EKG showed a paced rhythm with multifocal PVCs and intermittent bigeminy. The patient had an average pulse rate of 61.6 bpm with a minimum pulse rate of 40.0 bpm and a maximum pulse rate of 77.0 bpm. ? EEG Profile No signs of seizure activity seen. Assessment and Plan Assessment and Plan (1) SONJA (obstructive sleep apnea): Code(s): G47.33 - Obstructive sleep apnea (adult) (pediatric) Status: Acute Assessment and Plan: The patient was started on BPAP 10/6 cm H2O and titrated to BPAP 18/12 cm H2O with back-up rate of 12 breaths/min. We were able to find a pressure setting that resolved his sleep apnea with a high sleep efficiency. I recommend that the patient be prescribed BPAP 18/12 cm H2O with back-up rate of 12 breaths/min, size large F&P Sal full face mask, BPAP filters/tubing and heated humidity. This should be used with all episodes of sleep.? Compliance should be reviewed within 31-90 days of starting therapy for usage greater than 4 hours per night greater than 70% of the nights. The patient should be asked about symptoms such as?excessive daytime sleepiness, quality of sleep, decreased nocturia, increased?mental functioning such as memory, mood, and concentration. 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 The patient has a history of cardiomyopathy. I recommend that the patient have an echocardiogram done or has had one done in the past 6 months to evaluate left ventricular function. Data The data obtained during this sleep study is adequate for interpretation. Certification This sleep study has been reviewed by a board certified sleep medicine physician.
[2025-02-03 11:05] VITALS: BMI 32.3
== END 2025-01-03 06:37 | disposition home or self-care (01) ==
LOC: ANHCSM 09:03
PROVIDERS: Visit Provider Nurse Practitioner Family
DX: G47.33 Obstructive sleep apnea (adult) (pediatric) (principal)
CPT/HCPCS: 95811